=== PATIENT | female | born 1950 | race Caucasian/White ===

== ENCOUNTER → 2018-09-20 | Outpatient (CLI) | payer OTHER ==
[~2018-09-20] MED LIST: BUPIVACAINE/PF 0.5% ONE; BUPIVACAINE/PF-EPI 0.25% 1:200K ONE; EPINEPHRINE 1 MG/ML, 1ML ONE
== END | disposition home or self-care (01) ==
LOC: CFH 07:38
PROVIDERS: ATTEND Family Medicine
DX: Z13.820 Encounter for screening for osteoporosis (principal); N95.9 Unspecified menopausal and perimenopausal disorder
CPT/HCPCS: 77080; J0171; J3490

== ENCOUNTER 2020-01-07 10:44 | Day surgery (SDC) | payer MEDICARE ==
[~2020-01-07] VITALS: Ht 157.5 cm; Wt 130.9 kg
[~2020-01-07 10:44] MED LIST changes: +ACET-1600 PO; +AMLO10TA8 PO; +ATOR80TA PO; -BUPIVACAINE/PF 0.5% ONE; -BUPIVACAINE/PF-EPI 0.25% 1:200K ONE; +BUPR-173 PO; -EPINEPHRINE 1 MG/ML, 1ML ONE; +ERGO500017 PO; +FAMO-79 PO; +HYDR25TA6 PO; +LEVO25TA4 PO; +LISI-170 PO; +OMEG1CAP23 PO; +UBID100C24 PO
[2020-01-07] MEDS ORDERED: LACTATED RINGERS 1,000 ML IV SCH (11:22)
[2020-01-07 11:24] VITALS: BP 134/81
[2020-01-07] MEDS ORDERED: LIDOCAINE-MPF 1%, 2ML INFIL ONE (11:30)
[2020-01-07 12:22] LABS: ALANINE AMINOTRANSFERASE 24 U/L (12-78); ALBUMIN 3.9 g/dL (3.4-5.0); ANION GAP 8 mmol/L (5-15); CALCIUM 9.8 mg/dL (8.5-10.1); CHLORIDE 107 mmol/L (98-107); CREATININE 1.13 mg/dL (0.55-1.02)
[2020-01-07 12:24] LABS: ALKALINE PHOSPHATASE 125 U/L (45-117); BILIRUBIN,TOTAL 0.7 mg/dL (0.2-1.0); TOTAL PROTEIN 8.1 g/dL (6.4-8.2)
[2020-01-07] MEDS ORDERED: PROPOFOL 10 MG/ML, 20ML ONE (12:57)
[2020-01-07] MEDS ORDERED: EPHEDRINE 50 MG/ML, 1ML IVPush PRN (13:30)
[2020-01-07] MEDS ORDERED: DIAZEPAM 5 MG/ML, 2ML IVPush PRN (13:30)
[2020-01-07] MEDS ORDERED: ONDANSETRON ODT 8 MG PO PRN (13:30)
[2020-01-07] MEDS ORDERED: DIPHENHYDRAMINE 50 MG/ML, 1ML IVPush PRN (13:30)
[2020-01-07] MEDS ORDERED: FENTANYL PF 100 MCG/2ML IV PRN (13:30)
[2020-01-07] MEDS ORDERED: EPHEDRINE 50 MG/ML, 1ML IM PRN (13:30)
[2020-01-07] MEDS ORDERED: hydrALAzine 20 MG/ML, 1ML IV PRN (13:30)
[2020-01-07] MEDS ORDERED: MIDAZOLAM 1 MG/ML, 2ML IV PRN (13:30)
[2020-01-07] MEDS ORDERED: ONDANSETRON 2MG/ML, 2ML IV PRN (13:30)
== END 2020-01-07 14:45 | disposition home or self-care (01) ==
LOC: OUT 10:44
PROVIDERS: ATTEND Internal Medicine
DX: Z12.11 Encounter for screening for malignant neoplasm of colon (principal); D12.8 Benign neoplasm of rectum; E66.01 Morbid (severe) obesity due to excess calories; K21.9 Gastro-esophageal reflux disease without esophagitis
CPT/HCPCS: 36415; 45380; 80053; 88305; 93005; J2704

== ENCOUNTER 2021-01-27 16:55 | Emergency (ER) | payer MEDICARE ==
[~2021-01-27] VITALS: Ht 160 cm; Wt 139.3 kg
[~2021-01-27 16:55] MED LIST changes: +AMLO-211 PO; -AMLO10TA8 PO
--- NOTE | 2021-01-27 17:10 | NUR ---
PT BIB [facility] FOR LOWER BACK PAIN. PT STATES IT IS MORE ON HER LEFT AND RADIATES TO HER GROIN AND DOWN THE LEFT FRONT LEG. 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 PT WENT TO [facility] ON TUESDAY (01/25). PT CHANGED INTO GOWN, MONITORS IN PLACE. CALL LIGHT WITHIN REACH. NO NEEDS AT THIS TIME.
--- NOTE | 2021-01-27 17:31 | NUR ---
PT PLACED ON 2L N.C. D/T DESATING TO 86% ON RA
[2021-01-27] MEDS ORDERED: KETOROLAC 30 MG/1 ML ONE (17:55)
[2021-01-27] MEDS ORDERED: DIAZEPAM 5 MG TABLET ONE (17:55)
[2021-01-27] MEDS ORDERED: MORPHINE SULFATE 4 MG/ML, 1ML ONE (17:56)
[2021-01-27 17:58] LABS: BASOPHILS % (AUTO) 1 % (0-1); EOSINOPHILS % (AUTO) 1 % (1-7); LYMPHOCYTES % (AUTO) 21 % (22-44); MEAN CORPUSCULAR HEMOGLOBIN 32.7 pg (27.0-34.8); MEAN CORPUSCULAR HGB CONC 32.9 g/dL (32.4-35.8); MEAN PLATELET VOLUME 10.2 fL (7.4-10.4); MONOCYTES % (AUTO) 9 % (2-9); NEUTROPHILS % (AUTO) 68 % (42-75); PLATELET COUNT 274 x10^3/uL (130-400); RED BLOOD COUNT 4.77 x10^6/uL (3.82-5.3)
[2021-01-27] MEDS ORDERED: MORPHINE SULFATE 4 MG/ML, 1ML IVPush PRN (18:00)
[2021-01-27] MEDS ORDERED: SODIUM CHLORIDE FLUSH 10ML SYR IVF ONE (18:00)
[2021-01-27] MEDS ORDERED: KETOROLAC 30 MG/1 ML IVPush ONE (18:00)
[2021-01-27] MEDS ORDERED: DIAZEPAM 5 MG TABLET PO ONE (18:00)
[2021-01-27 18:09] LABS: ALBUMIN 3.8 g/dL (3.4-5.0); ANION GAP 5 mmol/L (5-15); CALCIUM 9.9 mg/dL (8.5-10.1); CHLORIDE 104 mmol/L (98-107); CREATININE 1.12 mg/dL (0.55-1.02)
--- NOTE | 2021-01-27 18:22 | NUR ---
PT LAYING ON NOE PEGUERO. MEDICATED PER EMAR. CALL LIGHT WITHIN REACH. COMFORT MEASURES PROVIDED.
[2021-01-27 18:25] LABS: MD SCAN
[2021-01-27 18:29] LABS: MICROSCOPIC NOT IND
--- NOTE | 2021-01-27 18:30 | NUR ---
PT TO MRI
--- NOTE | 2021-01-27 18:46 | NUR ---
REPORT RECEIVED FROM SIMONA CARTER
[2021-01-27] MEDS ORDERED: GADOTERATE 10 MMOL/20 ML VIAL ONE (18:54)
[2021-01-27] MEDS ORDERED: GADOTERATE 5 MMOL/10 ML VIAL ONE (18:54)
--- NOTE | 2021-01-27 19:29 | NUR ---
PT RETURNED FROM MRI
--- NOTE | 2021-01-27 19:30 | NUR ---
PT SUPINE ON GURNEY, RESTING COMFORTABLY. NADN, VSS. PT REPORTS "WORSENING PAIN" BUT DENIES NEED FOR ADDITIONAL PAIN MEDS AT THIS TIME. NO ADDITIONAL NEEDS AT THIS TIME. CALL LIGHT AND BELONGINGS WITHIN REACH
[2021-01-27 20:09] VITALS: BP 112/75
--- NOTE | 2021-01-27 20:15 | NUR ---
PT REQUESTING "A PAIN PILL" PRIOR TO D/C. "I JUST REALLY WANNA HAVE THIS PAIN UNDER CONTROL OR WORKING TOWARDS UNDER CONTROL WHEN I GET HOME". ERP AWARE. WILL MEDICATE PER EMAR.
[2021-01-27] MEDS ORDERED: HYDROcodone/APAP 5/325 TABLET ONE (20:19)
[2021-01-27] MEDS ORDERED: HYDROcodone/APAP 5/325 TABLET PO ONE (20:30)
== END 2021-01-27 20:39 | disposition home or self-care (01) ==
LOC: ED 20:00
DX: S39.012A Strain of muscle, fascia and tendon of lower back, initial encounter (principal); M51.16 Intervertebral disc disorders with radiculopathy, lumbar region; R20.0 Anesthesia of skin; Z87.891 Personal history of nicotine dependence; X58.XXXA Exposure to other specified factors, initial encounter; Y93.89 Activity, other specified; Y92.89 Other specified places as the place of occurrence of the external cause; Y99.8 Other external cause status
CPT/HCPCS: 36415; 72158; 80048; 81003; 82040; 85025; 96374; 96375; 99285; A9575; J1885; J2270